=== PATIENT | female | born 2000 | race Caucasian/White ===

== ENCOUNTER 2019-05-02 20:31 | Emergency (ER) | payer OTHER, SELFPAY ==
[2019-05-02] MEDS ORDERED: Ketorolac Tromethamine 60 MG/2 ML VIAL ONE (20:47)
[2019-05-02] MEDS ORDERED: Ondansetron ODT 4 MG TAB ONE (21:20)
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
== END 2019-05-02 22:17 | disposition home or self-care (01) ==
LOC: ERS 20:31
DX: S16.1XXA Strain of muscle, fascia and tendon at neck level, initial encounter (principal); F41.9 Anxiety disorder, unspecified; F32.9 Major depressive disorder, single episode, unspecified; Z79.899 Other long term (current) drug therapy; V89.2XXA Person injured in unspecified motor-vehicle accident, traffic, initial encounter
CPT/HCPCS: 72125; J1885; Q0162

== ENCOUNTER 2022-04-01 14:20 | Observation (INO) | payer SELFPAY ==
[2022-04-01] MEDS ORDERED: Morphine 4 MG/ML VIAL ONE ×2 (14:54→17:57)
[2022-04-01 14:58] LABS: Hemoglobin 14.7 g/dL (12.0-16.0); Mean Corpuscular HGB CONC 32.6 g/dL (32.0-36.0); Mean Corpuscular Hemoglobin 31.4 pg (27.0-31.0); Mean Corpuscular Volume 96.4 fL (78.0-98.0); Mean Platelet Volume 9.3 fL (7.4-10.4); Platelet Count 221 thou/uL (130-400); RBC Distribution Width 11.4 % (11.5-14.5); Red Blood Cell (RBC) Count 4.67 mill/uL (4.20-5.40); White Blood Cell (WBC) Count 9.5 thou/uL (4.8-10.8)
[2022-04-01 15:01] LABS: Bilirubin Negative (Negative); Blood, Urine Negative (Negative); Clarity Clear (Clear); Glucose, Urine (Dipstick) Normal (Negative); Ketone, Urine Negative (Negative); Leukocyte Negative Leu/uL (Negative); Nitrite Negative (Negative); Protein, Urine (Dipstick) Negative (Neg-Trace); Specific Gravity, Urine 1.005 (1.002-1.036); Urobilinogen Normal mg/dL (Less than 2); pH, Urine 6.5 (5.0-9.0)
[2022-04-01 15:02] LABS: BHCG - Serum Negative (NEGATIVE); Pregs Control Background? CLEAR/WHITE (CLR/WHITE); Pregs Control Bar Appear? YES (CONTROL BAR)
[2022-04-01 15:05] LABS: Pregnancy Test - Urine (BHCG) Negative (Negative); Pregu Control Background? CLEAR/WHITE (CLR/WHITE); Pregu Control Bar Appear? YES (CONTROL BAR); Specific Gravity 1.005 (1.002-1.036)
[2022-04-01 15:12] LABS: Band 6 % (5-11); Lymphocytes 1 % (21-51); MDiff Complete? YES; Monocytes 9 % (0-10); Neutrophil 83 % (42-75); Platelet Morphology Comment Appears Adequate; RBC Morphology Normal; Reactive Lymphocytes 1 % (0-10)
[2022-04-01 15:17] LABS: ALT (SGPT) 8 U/L (8-55); AST (SGOT) 14 U/L (5-34); Albumin 4.3 g/dL (3.5-5.0); Alkaline Phosphatase 49 U/L (40-110); Anion Gap 12 mmol/L (10-20); BUN (Urea Nitrogen) 7 mg/dL (7.0-18.7); Bilirubin, Total 0.5 mg/dL (0.2-1.2); Calc. Creatinine Clearance 0 mL/min (70-130); Calcium 8.9 mg/dL (7.8-10.44); Carbon Dioxide 26 mmol/L (22-29); Chloride 103 mmol/L (98-107); Globulin 2.7 g/dL (2.4-3.5); Glucose 95 mg/dL (70-105); Lipase 10 U/L (8-78); Potassium 3.8 mmol/L (3.5-5.1); Sodium 137 mmol/L (136-145)
[2022-04-01] MEDS ORDERED: HYDROmorphone 0.5 MG/0.5 ML SYRINGE ONE (17:27)
[2022-04-01] MEDS ORDERED: Ondansetron PF 4 MG/2 ML Vial ONE (17:58)
[2022-04-01] MEDS ORDERED: HYDROcodone/Acetaminophen 5/325 mg Tablet PO PRN (18:44)
[2022-04-01] MEDS ORDERED: Ondansetron ODT 4 MG TAB PO PRN (18:44)
[2022-04-01] MEDS: Ketorolac Tromethamine 30 MG/ML VIAL IVP SCH (20:27)
[2022-04-01 22:42] VITALS: BMI 28.3
[2022-04-02 00:51] LABS: SARS-CoV-2 PCR by NAA DETECTED (NotDetected)
[2022-04-02] MEDS: Ketorolac Tromethamine 30 MG/ML VIAL IVP SCH (03:31)
[2022-04-02 05:12] LABS: Band 3 % (5-11); Hemoglobin 13.3 g/dL (12.0-16.0); Lymphocytes 13 % (21-51); MDiff Complete? YES; Mean Corpuscular HGB CONC 33.1 g/dL (32.0-36.0); Mean Corpuscular Hemoglobin 32.4 pg (27.0-31.0); Mean Corpuscular Volume 97.9 fL (78.0-98.0); Mean Platelet Volume 9.7 fL (7.4-10.4); Monocytes 14 % (0-10); Neutrophil 70 % (42-75); Platelet Count 175 thou/uL (130-400); Platelet Morphology Comment Appears Adequate; RBC Distribution Width 11.3 % (11.5-14.5); RBC Morphology Normal; Red Blood Cell (RBC) Count 4.11 mill/uL (4.20-5.40); White Blood Cell (WBC) Count 4.6 thou/uL (4.8-10.8)
[2022-04-02] MEDS ORDERED: Famotidine 20 MG TAB PO SCH (09:00)
[2022-04-02] MEDS ORDERED: Ibuprofen 200 MG TAB PO SCH (09:00)
[2022-04-02] MEDS ORDERED: Ibuprofen 100 MG/5 ML UDCUP PO SCH (09:00)
[2022-04-02 11:52] LABS: Chlam.trachomatis by PCR,Urine Not Detected (NotDetected)
[2022-04-02 12:53] VITALS: BP 121/76; TEMP 99
== END 2022-04-02 14:22 | disposition home or self-care (01) ==
LOC: ERS 14:20 → 2SW 18:15
PROVIDERS: ADMIT Family Medicine; ATTEND Student in an Organized Health Care Education/Training Program
DX: R10.31 Right lower quadrant pain (principal); U07.1 COVID-19; R00.0 Tachycardia, unspecified; E28.2 Polycystic ovarian syndrome; F17.210 Nicotine dependence, cigarettes, uncomplicated
CPT/HCPCS: 36415; 74177; 76856; 80053; 81003; 81025; 83605; 83690; 84703; 85025; 87086; 87491; 87591; 96374; 96375; 96376; G0378; J1170; J1885; J2270; J2405; Q0162; U0003; U0005